=== PATIENT | female | born 1995 | race Caucasian/White ===

== ENCOUNTER 2023-06-13 18:17 | Emergency (ER) | payer OTHER ==
--- NOTE | 2023-06-13 19:25 | ED Physician Documentation ---
PD HPI UPPER EXT INJURY - Stated complaint Stated Complaint: RT ARM DOG BITE - Chief complaint Chief Complaint: Laceration - History obtained from History obtained from: Patient - History of Present Illness Location: Right, Arm - Additonal information Additional information: 27-year-old female presents to the emergency department today for right arm laceration caused by dog bite. Patient has 2 dogs at home and they are fully vaccinated she said her larger dog when she was trying to break up their fight bit onto her right arm. Bleeding is well-controlled she has not any blood thinners and she is up-to-date with all vaccines. PD PAST MEDICAL HISTORY - Past Medical History Past Medical History: No Derm: Other Other Past Medical History: pilonidal cysts - Past Surgical History Past Surgical History: Yes General: Cholecystectomy HEENT: Tonsil/Adenoidectomy - Present Medications Home Medications: Ambulatory Orders Medication Instructions Recorded Confirmed Amox/Clav 875/125 [Augmentin 1 tablet PO Q12H 7 Days #14 tablet 06/13/23 875/125 Tab] Non Formulary 1 each PO DAILY 06/13/23 06/13/23 - Allergies Allergies/Adverse Reactions: Allergies Allergy/AdvReac Type Severity Reaction Status Date / Time cefazolin Allergy Rash Verified 06/13/23 18:31 - Social History Does the pt smoke?: No Smoking Status: Never smoker Does the pt drink ETOH?: Yes Does the pt have substance abuse?: No - Immunizations Immunizations are current?: Yes PD ED PE NORMAL - Vitals Vital signs reviewed: Yes - General General: Alert and oriented X 3, No acute distress, Well developed/nourished - Derm Derm: Other (To lacerations to right forearm, both lacerations 3cm) - Extremities Extremities: Other (right forearm full ROM, obvious swelling and erythema surrounding the dog bite. ) Results - Vitals Vitals: Vital Signs - 24 hr 06/13/23 06/13/23 18:27 20:34 Temperature 36.8 C Heart Rate 77 80 Respiratory 14 18 Rate Blood Pressure 137/85 H 149/95 H O2 Saturation 100 99 Oxygen O2 Source Room air Procedures - Laceration (location) right arm Wound type: Linear, Into subcut fat Neurovascular status: Sensory intact, Motor intact Anesthesia: Lidocaine 1% with epi Wound preparation: Irrigated copiously NS, Debrided moderately, Wound explored Skin layer closure: Nylon, Interrupted, Sutures - enter # (6) Other: Patient tolerated well PD Medical Decision Making - ED course ED course: Wound inspected under direct bright light with good visualization. Area with linear laceration across soft tissue through adipose without exposure of muscle belly. No overt foreign body. Area hemostatic. Area extensively irrigated with sterile normal saline under pressure. Lacerations repaired in simple fashion (please see procedure note for further details). Patient tolerated procedure well. All compartments of the arm remain soft. Cautious return precautions discussed w/ full understanding. Wound care discussed. Prompt follow up with primary care physician discussed and return for suture removal in 7 days. Patient was given first dose of Augmentin here in the emergency department given the complexity of the wound to her right forearm and the risk of infection with dog bites. Lacerations were repaired very loosely if patient does start to experience any signs or symptoms of infection there should be plenty of room for purulent drainage to escape but patient was given strict return precautions and when to come back to the emergency department if this were to happen. Departure - Departure Disposition: 01 Home, Self Care Clinical Impression: Puncture wound, Laceration Dog bite of right arm Qualifiers: Encounter type: initial encounter Qualified Code(s): S41.151A - Open bite of right upper arm, initial encounter Condition: Good Instructions: ED Laceration All Prescriptions: Amox/Clav 875/125 [Augmentin 875/125 Tab] 1 tablet PO Q12H 7 Days #14 tablet Comments: Please come back for any signs of infection which would include: Redness, swelling, drainage, increased pain, or fevers. You can wash it soap and water. Keep it covered and moist with bacitracin ointment which is available over the counter; avoid neosporin. Follow-up with your physician in [7] days for suture removal. As we discussed dog bites are prone to cause infection. Make sure that you are washing it twice a day with soap and water and keep your arm elevated for the inflammation and swelling. Especially while you are sleeping. I sent your prescription to the [facility], you take this twice a day for the next 7 days. You already took your first dose today here in the emergency department. Forms: PCP List Discharge Date/Time: 06/13/23 20:35
[2023-06-13] MEDS ORDERED: LIDOCAINE 2%-EPI 1:100000 20 ML MDV ONE (19:42)
[2023-06-13] MEDS: AMOX/CLAV 875 MG/125 MG TABLET PO STA (19:45)
[2023-06-13] MEDS: LIDOCAINE 2%-EPI 1:100000 20 ML MDV SUBQ STA (20:02)
[2023-06-13] MEDS: LIDOCAINE 1%-EPI 1:100000 10 ML MDV SUBQ STA (20:04)
[2023-06-13] MEDS: LIDOCAINE 1%-EPI 1:100000 10 ML MDV TD STA (20:04)
[2023-06-13 20:39] VITALS: BP 149/95; O2SAT 99
== END 2023-06-13 20:35 | disposition home or self-care (01) ==
LOC: ED 18:17
DX: S41.151A Open bite of right upper arm, initial encounter (principal); W54.0XXA Bitten by dog, initial encounter
CPT/HCPCS: 12002; 99282; 99283; A9270

== ENCOUNTER 2024-01-07 07:53 | Outpatient (CLI) | payer OTHER ==
--- NOTE | 2024-01-07 16:57 | Ultrasound Report ---
PROCEDURE: Pelvic w/Transvaginal INDICATIONS: IRREGULAR MENSTRATION TECHNIQUE: Real-time scanning was performed of the pelvic organs, with image documentation. Additional endovagi nal scanning was necessary due to incomplete visualization of the adnexal and endometrial structures by transabdominal scanning. COMPARISON: None. FINDINGS: Uterus: Uterus is anteverted and normal in size at 7.3 x 2.9 x 4.1 cm. The myometrium is homogeneou s. The endometrium measures 12.7 mm in combined thickness. Ovaries: Dominant right ovarian follicle versus cyst measures 2.0 cm. It appears anechoic, with post erior acoustic enhancement no definite internal echogenicity, thin zuniga. The right ovary measures 2.8 x 2.7 x 2.6 cm, with a calculated ovarian volume of 10.3 cc. The left ovary measures 2.9 x 1.2 x 1.6 cm, with a calculated ovarian volume of 3.3 cc. The ovaries have otherwise unremarkable sonographic appearance. Less than 12 follicles can be seen in each ovary . No adnexal masses are seen. No cystic lesions measuring greater than 3 cm. Other: No pathologic free abdominal or pelvic fluid. IMPRESSION: Right ovarian simple appearing cyst versus follicle Otherwise unremarkable transabdominal and transvaginal pelvic ultrasound Reviewed by: Segundo Melara MD on 01/07/2024 4:56 PM PDT Approved by: Segundo Melara MD on 01/07/2024 4:56 PM PDT Station ID: [id number]
== END 2024-01-07 07:54 | disposition home or self-care (01) ==
LOC: DI 07:53
PROVIDERS: ATTEND Nurse Practitioner Family
DX: N92.6 Irregular menstruation, unspecified (principal)